=== PATIENT | male | born 1990 | race Caucasian/White ===

== ENCOUNTER → 2023-03-24 | Outpatient (REF) | payer OTHER | LOC: M LABSMT 08:53 | PROVIDERS: ATTEND Urology | DX: Z30.2 Encounter for sterilization (principal) ==

== ENCOUNTER → 2024-02-02 | Outpatient (REF) | payer OTHER ==
[2024-02-02 11:54] LABS: SEMEN APPEARANCE OPAQUE (OPAQUE); SEMEN VISCOSITY LIQUID (LIQUID); SEMEN VOLUME 9.4 ml (2.0-5.0); WBC CONCENTRATION >1 M/ml (<=1 M/ml)
== END ==
LOC: M SMT 11:41
PROVIDERS: ATTEND Urology
DX: Z30.2 Encounter for sterilization (principal)